=== PATIENT | male | born 1980 | race Caucasian/White ===

== ENCOUNTER 2017-06-26 20:34 | Emergency (ER) | payer OTHER ==
[~2017-06-26] VITALS: Ht 165.1 cm; Wt 81.0 kg
[2017-06-26 20:36] VITALS: BP 148/100; PULSE 95; RESP 16; TEMP 97.4; O2SAT 99
--- NOTE | 2017-06-26 21:06 | RADRPT ---
EXAM DATE/TIME: 06/26/2017 20:55 [facility] COMPARISON: No previous studies available for comparison. INDICATIONS : Right wrist pain. Patient got his arm caught between griselda tile material and a truck. MEDICAL HISTORY : None. SURGICAL HISTORY : None. ENCOUNTER: Initial ACUITY: 1 day PAIN SCORE: 10/10 LOCATION: Right wrist. FINDINGS: There is no acute fracture or subluxation of the right wrist. An old, ununited ulnar styloid fracture is seen. Carpal bones are normally aligned and have normal morphology. Radiographic appearance of th e soft tissues within normal limits. CONCLUSION: No acute fracture or subluxation of the right wrist. Old ulnar styloid fracture. Foster Laws MD on June 26, 2017 at 21:03 Board Certified Radiologist. This report was verified electronically.
--- NOTE | 2017-06-26 21:26 | PD ---
HPI Chief Complaint: Injury Time Seen by Provider: 21:23 Travel History International Travel<30 days: No Contact w/Intl Traveler<30days: No Traveled to known affect area: No History of Present Illness HPI 37-year-old [id number] male presents emergency Department with complains of right wrist and elbow pain after injury at work today. 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 The patient states the pain is in his wrist up into his elbow. Pain is moderate. He denies any weakness. He does complain some tingling in his right index finger. He denies any other injuries. [facility] Past Medical History Narrative Medical Hypercholesterolemia Immunizations Current: Yes Tetanus Vaccination: < 5 Years Influenza Vaccination: No Past Surgical History Surgical History: No Previous Surgery Social History Alcohol Use: No Tobacco Use: No Substance Use: No Allergies-Medications (Allergen,Severity, Reaction): Coded Allergies: No Known Allergies (Verified Allergy, Unknown, 06/26/17) Review of Systems Except as stated in HPI: all other systems reviewed are Neg Physical Exam Narrative GENERAL: Well-developed, well-nourished in no apparent distress. Nontoxic appearing. HEAD: Normocephalic, atraumatic. EYES: Pupils equal round and reactive. Extraocular motions intact. No scleral icterus. No injection or drainage. ENT: Nose clear. Throat without erythema, tonsillar hypertrophy or exudate. Uvula midline. Airway patent. NECK: Trachea midline. Supple, nontender, moves head freely. No central bony tenderness or spasm. CARDIOVASCULAR: Regular rate and rhythm without murmurs, gallops, or rubs. RESPIRATORY: Clear to auscultation. Breath sounds equal bilaterally. No wheezes , rales, or rhonchi. GASTROINTESTINAL: Abdomen soft, non-tender, nondistended. No hepato-splenomegaly , or palpable masses. No guarding. EXTREMITIES: No clubbing, cyanosis, or edema. Examination of the right upper extremity reveals pain over the dorsal and ulnar aspect of the wrist. There is no swelling or skin breakdown. There is no pain in the fingers. He is able to open and close his hand freely. Good director patient. Intact median/ulnar/radial nerves. No anatomical snuff box pain. Patient also complains of pain in the medial component of the elbow. He is able to extend and flex but has pain with supination and pronation. No pain in the shoulder. The left upper extremity as well as lower extremity without localizing bony tenderness or deformity. BACK: Nontender without deformity. No flank tenderness. NEUROLOGICAL: Awake, alert and oriented x 3 .Cranial nerves grossly intact. Motor and sensory grossly within normal limits. Normal speech. Data Data Last Documented VS Vital Signs Date Time Temp Pulse Resp B/P (MAP) Pulse Ox O2 Delivery O2 Flow Rate FiO2 06/26/17 20:36 97.4 95 16 148/100 (116) 99 Room Air Orders Orders Wrist, Complete ([id number]) (06/26/17 ) Elbow, Complete (4 Vws) (06/26/17 21:22) Ice/Cold Pack (06/26/17 21:22) Splint Or Brace Apply/Monitor (06/26/17 21:56) Acetamin-Hydrocod 325-5 Mg (Crivitz 5-325 (06/26/17 22:00) Ibuprofen (Motrin) (06/26/17 22:00) MDM Medical Decision Making Medical Screen Exam Complete: Yes Emergency Medical Condition: Yes Medical Record Reviewed: Yes Interpretation(s) Last 24 hours Impressions Wrist X-Ray 06/26/17 0000 Signed Impressions: Service Date/Time: Monday, June 26, 2017 20:55 - CONCLUSION: No acute fracture or subluxation of the right wrist. Old ulnar styloid fracture. Foster Laws MD Right elbow: Negative for acute bony injury. Differential Diagnosis MDM: High Differential diagnoses: Fracture, sprain, strain, dislocation, contusion, neurovascular injury Narrative Course X-rays of the right wrist are negative for bony injury X-ray of the right elbow are negative for bony injury Patient's place Velcro wrist splint is given Motrin 800 mg and Lortab 5 a grams by mouth. This is right arm contusion Diagnosis Primary Impression: Contusion of right arm Qualified Codes: S40.021A - Contusion of right upper arm, initial encounter Patient Instructions: General Instructions Additional Instructions: Rest. Velcro wrist splint. Elevation. Ice. Follow-up with a primary care or orthopedist within the next 3-5 days. Med/Other Pt SpecificInfo: Prescription(s) given Condition: Stable Abbe Cordova 12, 2017 21:26
--- NOTE | 2017-06-26 21:59 | RADRPT ---
EXAM DATE/TIME: 06/26/2017 21:35 [facility] COMPARISON: No previous studies available for comparison. INDICATIONS : Right elbow pain. Patient got arm caught between griselda tile material and a truck. MEDICAL HISTORY : None. SURGICAL HISTORY : None. ENCOUNTER: Initial ACUITY: 1 day PAIN SCORE: 10/10 LOCATION: Right elbow. FINDINGS: Multiple view examination of the right elbow demonstrates no soft tissue swelling, joint effusion, or fracture. The osseous structures are in normal alignment. Bony mineralization is normal. CONCLUSION: No fracture, subluxation or radiopaque foreign body of the right elbow. Foster Laws MD on June 26, 2017 at 21:57 Board Certified Radiologist. This report was verified electronically.
[2017-06-26] MEDS ORDERED: ACETAMINOPHEN/HYDROcodone 325 MG/5 MG TAB PO ONE (22:00)
[2017-06-26] MEDS ORDERED: DICL75TA PO (22:00)
[2017-06-26] MEDS ORDERED: IBUPROFEN 800 MG TAB PO ONE (22:00)
[2017-06-26] MEDS ORDERED: HYDR-3533 PO (22:00)
== END 2017-06-26 22:39 | disposition home or self-care (01) ==
LOC: EDTENT 20:34
DX: S40.021A Contusion of right upper arm, initial encounter (principal); E78.00 Pure hypercholesterolemia, unspecified; X58.XXXA Exposure to other specified factors, initial encounter
CPT/HCPCS: 73080; 73110; 99283; L3908